=== PATIENT | male | born 1975 | race African-American/Black ===

== ENCOUNTER → 2017-11-10 | Outpatient (CLI) | payer OTHER ==
--- NOTE | 2017-11-10 10:38 | MRI ---
MRI left knee without contrast Indication: Left knee popping and swelling. Concern for meniscal tear. Comparison: None Technique: Multiplanar multi sequence MR images of the left knee were obtained without contrast. Findings: There is a 2.0 x 1.4 cm chondroid appearing lesion within the fibular head (image 24, serie s [id number], demonstrating narrow zone of transition, without evidence for extraosseous extension, perioste al reaction, or soft tissue component. The marrow signal is otherwise grossly unremarkable, without e vidence for acute fracture. There is moderate chondrosis of the medial and lateral femorotibial compartments, without definite fu ll-thickness chondral defect. There is vertical longitudinal tear of the medial meniscal posterior ho rn and body. There is horizontal cleavage tear of the lateral meniscal body and anterior horn extendi ng to the anterior root. There is diffusely increased signal and irregularity of the ACL fibers. The PCL, mcl, major lateral s tabilizers, and extensor mechanism are intact. Small amount of fluid is present within the joint spac e. No popliteal cyst. Impression: 1. Horizontal cleavage tear of the lateral meniscal body and anterior horn. Vertical longitudinal tea r of the medial meniscal posterior horn and body. 2. Moderate medial and lateral femorotibial chondrosis. 3. 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 Correlation is recommended. 4. Benign-appearing 2.0 x 1.4 cm lesion within the proximal fibula, suggestive for low-grade chondroi d lesion. Recommend radiographic correlation. Reported By:
== END | disposition home or self-care (01) ==
LOC: RAD 08:08
DX: M25.562 Pain in left knee (principal); S83.282A Other tear of lateral meniscus, current injury, left knee, initial encounter; S83.242A Other tear of medial meniscus, current injury, left knee, initial encounter; X58.XXXA Exposure to other specified factors, initial encounter
CPT/HCPCS: 73721